=== PATIENT | female | born 1960 | race Caucasian/White ===

== ENCOUNTER 2022-10-09 08:26 | Day surgery (SDC) | payer OTHER, SELFPAY ==
[2022-10-09] MEDS: LACTATED RINGERS 1,000 ML 150 ML IV (08:39)
--- NOTE | 2022-10-09 08:49 | PM.PREOP ---
Pre-operative Note COVID-19 COVID-19 status: Not tested Interval Note History & Physical reviewed/Exam performed by Physician: Yes Changes to H&P: No ASA Class (for procedural sedation): II
[2022-10-09 08:50] VITALS: BP 136/89; PULSE 72; RESP 18; TEMP 36.1; O2SAT 100; BMI 25.8
--- NOTE | 2022-10-09 10:20 | PM.OP.COLON ---
Operative Date/Time/Diagnoses Date of procedure: 10/09/22 Time of procedure: 10:21 Pre-op diagnosis: Colon cancer screening Post-op diagnosis: same Procedure & Clinicians Study performed: Colonoscopy Same procedure as scheduled: Yes Surgeon: Luis Alatorre Procedure Notes Procedure in detail: Surgeon: Luis Alatorre MD Anesthesia: Sb Alexander CRNA Procedure: The patient was brought to the endoscopy suite, placed in left lateral decubitus position. The patient was connected to monitoring devices. A time-out was performed. Sedation was administered. Once the patient was adequately sedated, a digital rectal exam was performed and was normal. The scope was then inserted and advanced to the cecum where the appendiceal orifice was identified and photographed. The scope was then slowly withdrawn over greater than 6 minutes. The mucosa was thoroughly inspected. The mucosa looked completely normal throughout the colon. The scope was retroflexed in the rectum. No other abnormalities were seen. The scope was straightened and removed. The patient was awakened and brought to recovery. Scope withdrawal time: 6 minutes Sedation time: 18 minutes EBL: 0 Findings: Normal colon Post-procedure Recommendations: Colonoscopy in 10 years Disposition: PACU
[2022-10-09 10:22] VITALS: BP 99/69; PULSE 86; RESP 12; TEMP 36.1; O2SAT 97
[2022-10-09 10:26] VITALS: BP 116/74; PULSE 82; RESP 18; O2SAT 96
[2022-10-09 10:32] VITALS: BP 120/78; PULSE 77; RESP 12; O2SAT 97
[2022-10-09 10:37] VITALS: BP 123/82; PULSE 75; RESP 17; TEMP 36.1; O2SAT 98
== END 2022-10-09 11:23 | disposition home or self-care (01) ==
PROVIDERS: Referring Provider Surgery; Visit Provider Surgery
PROC: 0DJD8ZZ Inspection of Lower Intestinal Tract, Via Natural or Artificial Opening Endoscopic (ICD-10-PCS; CPT 45378; principal; 2022-10-09 09:45)
DX: Z12.11 Encounter for screening for malignant neoplasm of colon (principal)
CPT/HCPCS: 45378; J2704

== ENCOUNTER 2022-10-18 04:13 | Emergency (ER) | payer OTHER, SELFPAY ==
[2022-10-18 04:20] VITALS: BP 178/84; PULSE 75; RESP 18; TEMP 36.6; O2SAT 98; BMI 27.1
[2022-10-18 04:56] LABS: Add Manual Diff / Slide Review NO; Basophils Absolute Auto 0 /uL (0-100); Basophils Percent Auto 0.7 % (0-2); Eosinophils Absolute Auto 400 /uL (0-450); Eosinophils Percent Auto 8.6 % (2-4); Hematocrit 37.9 % (36-46); Hemoglobin 13.2 g/dL (12.0-16.0); Lymphocytes Absolute Auto 1500 /uL (1100-4500); Lymphocytes Percent Auto 31.1 % (25-40); Mean Corpuscular HGB Conc 34.8 % (30-36); Mean Corpuscular Hemoglobin 32.3 PG (26-34); Mean Corpuscular Volume 92.7 fL (80-100); Monocytes Absolute Auto 400 /uL (0-900); Monocytes Percent Auto 7.8 % (3-14); Neutrophils Absolute Auto 2500 /uL (1500-7000); Neutrophils Percent Auto 51.8 % (50-75); Platelet Count 221 X10^3/uL (150-400); Red Blood Cell Count 4.09 X10^6/uL (4.0-5.2); Red Cell Distribution Width 12.5 % (11.6-14.8); White Blood Cell Count 4.9 X10^3/uL (4.5-11.0)
--- NOTE | 2022-10-18 04:59 | ED_ITS ---
HPI - Back Pain/Injury General Chief Complaint: Back Pain/Injury Stated Complaint: Pos kidney stone Time Seen by Provider: 10/18/22 04:52 Source: patient History of Present Illness HPI Narrative: Patient 62-year-old female without significant past medical history presenting today with worsening right-sided flank pain. She reports that for the last 2 months he is had dull ache in her right flank. Over last couple days especially tonight increasing pain radiating into her groin. He is ever had kidney stones before. She is thrown up a couple of times. She feels like she has to get up and walk around whenever she has intense pain. She took some ibuprofen without significant relief. No fevers or chills. Related Data Home Medications Medication Instructions Recorded Confirmed ibuprofen 200 mg tablet (Advil) 400 mg PO Q8H 09/17/22 10/09/22 melatonin 3 mg tablet 3 mg PO BEDTIME 09/17/22 10/09/22 methocarbamol 750 mg tablet 750 mg PO Q6H PRN muscle spasms 09/17/22 10/09/22 Previous Rx's Medication Instructions Recorded hydrocodone 5 mg-acetaminophen 325 1 tab PO Q6H PRN pain #10 tabs 10/18/22 mg tablet ondansetron 4 mg disintegrating 4 mg PO Q8H PRN nausea and 10/18/22 tablet vomiting #10 tabs tamsulosin 0.4 mg capsule (Flomax) 0.4 mg PO BEDTIME #10 caps 10/18/22 Allergies Allergy/AdvReac Type Severity Reaction Status Date / Time Sulfa (Sulfonamide Allergy Unknown Verified 10/09/22 08:38 Antibiotics) Review of Systems Review of Systems ROS Unobtainable: All systems reviewed & are unremarkable except as noted in HPI and below Patient History Medical History Back pain Family history of colonic polyps GERD without esophagitis Lumbar disc herniation with radiculopathy Situational anxiety Social History household members: spouse Smoking Status: Never smoker alcohol intake: current Smoking Status: Never smoker alcohol intake frequency: 0-2 drinks per day Substance Use Type: does not use Exam Initial Vital Signs Initial Vital Signs: Vital Signs Temperature 97.9 F 10/18/22 04:20 Pulse Rate 75 10/18/22 04:20 Respiratory Rate 18 10/18/22 04:20 Blood Pressure 178/84 H 10/18/22 04:20 Pulse Oximetry 98 10/18/22 04:20 Oxygen Delivery Method Room Air 10/18/22 04:20 GENERAL: Alert 62-year-old female appears uncomfortable HEENT: Head atraumatic,EOMI, pupils reactive, face symmetric, moist mucous membranes CARDIOVASCULAR: Regular rate and rhythm without murmurs, rubs or gallops. RESPIRATORY: Breath sounds equal bilaterally, no wheezes rales or rhonchi. ABDOMEN: Soft, significant right lower quadrant tenderness negative Figueroa's sign no guarding no rebound no distention normal bowel sounds : Mild right CVA tenderness EXTREMITIES: Normal range of motion, no clubbing or edema. Neurovascularly intact NEUROLOGICAL: Alert and oriented x4 SKIN: Warm, dry, no laceration, no petechiae, no rashes or lesions. Course Orders Ordered: ED Orders 10/18/22 04:40 Complete Blood Count AUTO DIFF Stat Comprehensive Metabolic Panel Stat Lipase Stat 10/18/22 04:50 Urine Microscopic Stat 10/18/22 05:06 CT kidney ureter bladder (KUB) Stat Discontinued Medications Hydrocodone Bitart/Acetaminophen (Hydrocodone/Acet 5/325 Prepack) 1 bottle MISC SEEINSTR ONE Stop: 10/18/22 06:22 Last Admin: 10/18/22 06:32 Dose: 1 bottle Ketorolac Tromethamine (Ketorolac 30 Mg/Ml Vial) 15 mg IV NOW ONE Stop: 10/18/22 05:07 Last Admin: 10/18/22 05:14 Dose: 15 mg Documented By: HARIKA Morphine Sulfate (Morphine 2 Mg/Ml Inj) 2 mg IV NOW ONE Stop: 10/18/22 05:07 Last Admin: 10/18/22 05:41 Dose: 2 mg Documented By: MLTony Ondansetron HCl (Ondansetron 4 Mg/2 Ml Inj) 4 mg IV NOW ONE Stop: 10/18/22 05:07 Last Admin: 10/18/22 05:15 Dose: 4 mg Documented By: HARIKA Ondansetron HCl (Ondansetron 4 Mg Odt Prepack) 1 bottle MISC SEEINSTR ONE Stop: 10/18/22 06:22 Last Admin: 08/05/23 06:32 Dose: 1 bottle Vital Signs Vital signs: Vital Signs - 8 hr 10/18/22 04:20 10/18/22 06:33 Temperature 97.9 F Pulse Rate 75 100 H Respiratory Rate 18 14 Blood Pressure 178/84 H 152/72 H Pulse Oximetry 98 100 Oxygen Delivery Method Room Air Room Air MDM - Back Pain/Injury Lab Data 10/18/22 04:40 10/18/22 04:40 Labs: Lab Results 10/18/22 10/18/22 10/18/22 Range/Units 04:40 04:40 04:50 WBC 4.9 (4.5-11.0) X10^3/uL RBC 4.09 (4.0-5.2) X10^6/uL Hgb 13.2 (12.0-16.0) g/dL Hct 37.9 (36-46) % MCV 92.7 (80-100) fL MCH 32.3 (26-34) PG MCHC 34.8 (30-36) % RDW 12.5 (11.6-14.8) % Plt Count 221 (150-400) X10^3/uL Neut % (Auto) 51.8 (50-75) % Lymph % (Auto) 31.1 (25-40) % [place] % (Auto) 7.8 (3-14) % Eos % (Auto) 8.6 H (2-4) % Baso % (Auto) 0.7 (0-2) % Neut # (Auto) 2500 (5729-3943) /uL Lymph # (Auto) 1500 (1114-9677) /uL [place] # (Auto) 400 (0-900) /uL Eos # (Auto) 400 (0-450) /uL Baso # (Auto) 0 (0-100) /uL Sodium 138 (137-145) mmol/L Potassium 3.9 (3.4-5.1) mmol/L Chloride 103 (98-107) mmol/L Carbon Dioxide 28 (22-32) mmol/L BUN 13 (7-17) mg/dL Creatinine 0.73 (0.52-1.04) mg/dL Estimated GFR > 60 (>60) mL/min BUN/Creatinine Ratio 17.8 (6-22) Glucose 103 (80-110) mg/dL Calcium 9.0 (8.4-10.2) mg/dL Total Bilirubin 0.3 (0.2-1.3) mg/dL AST 24 (14-36) IU/L ALT 25 (<35) IU/L Alkaline Phosphatase 61 (38-126) U/L Total Protein 6.7 (6.3-8.2) g/dL Albumin 4.3 (3.5-5.0) g/dL Globulin 2.4 (1.7-4.1) g/dL Albumin/Globulin Ratio 1.8 (1.0-2.8) Lipase 180 (23-300) U/L Urine RBC 1-5/hpf (0-5/HPF) Urine WBC 1-5/hpf (0-5/HPF) Ur Squamous Epith Cells 5-10 /hpf H (0-5/HPF) Urine Bacteria Few (2-10) H (None) Hyaline Casts 0-1/lpf (None) Urine Mucus 2+ H (Negative) Ur Culture Indicated? Cult not indicated Urine Dip Bedside Urine Glucose Negative Bedside Urine Bilirubin - Negative Bedside Urine Ketone - Negative Urine Specific [place] 1.015 Bedside Urine Occult Blood ++ Bedside Urine pH 6 Bedside Urine Protein - Negative Bedside Urine Urobilinogen - Negative Bedside Urine Nitrite - Negative Bedside Urine Leukocytes - Negative Esterase Imaging Data CT scan - abdomen/pelvis: Radiologist's Impression: Preliminary report moderate right-sided hydronephrosis with the mm right distal ureteral calculus. Additional nonobstructing right renal calculi are present. MDM Narrative Medical decision making narrative: 59-year-old female presents today with right-sided flank pain. Reports that she is had dull ache for last couple of months symptoms radiating to her groin high suspicion for nephrolithiasis which is confirmed by CT. She has hematuria but no evidence of infection. There is no JAMES on labs. She is given Toradol Zofran and morphine in the ED which has helped. At this time can follow-up of urology for probable ureteral stent. Discharge Plan Departure Patient Disposition: Home Clinical Impression: Kidney stone on right side Instructions: DI for Kidney Stones Activity Restrictions/Additional Instructions: * You've been diagnosed with kidney stone * What to do: Increase fluid intake, Strain urine, try to catch stone * Please follow-up with your primary care provider in the next 2-3 days, you may require urology consultation please discuss this with Please call urology tomorrow to schedule follow-up appointment -If you should have fever, or pain is uncontrolled with medication at home or any other concerning symptoms return to ER for further evaluation MEDICATIONS--> [facility] Take Motrin 600 mg every 8 hours as needed for pain Take [place] every 6 hours if needed for severe pain Take Zofran every 4-6 hours if needed for nausea Flomax 0.4 mg nightly to help with passage of stone CONTROLLED SUBSTANCE DISCHARGE (Narcotoic/benzodiazepine) 1. You have been prescribed narcotic medications, it does have acetaminophen/Tylenol/paracetamol in it so do not take extra Tylenol or Tylenol containing products 2. Please understand that we cannot provide further refills of narcotics, benzodiazepines or controlled substances through the ED and her pain management will need to be through your provider. 3. While on these medications you cannot drive or operate heavy machinery. 4. You cannot sign legal documents or perform any duties such as this. 5. As long as you're taking opiate pain medications he should also be taking a stool softener such as Colace, Dulcolax, MiraLAX or prune juice, to help avoid constipation. Prescriptions: New hydrocodone-acetaminophen 5-325 mg tablet 1 tab PO Q6H PRN (Reason: pain) Qty: 10 0RF tamsulosin [Flomax] 0.4 mg capsule 0.4 mg PO BEDTIME Qty: 10 0RF ondansetron 4 mg tablet,disintegrating 4 mg PO Q8H PRN (Reason: nausea and vomiting) Qty: 10 0RF No Action methocarbamol 750 mg tablet 750 mg PO Q6H PRN (Reason: muscle spasms ) ibuprofen [Advil] 200 mg tablet 400 mg PO Q8H melatonin 3 mg tablet 3 mg PO BEDTIME Referrals: Quan Marti MD [Physician] - Stand Alone Forms: Patient Portal/API
[2022-10-18 05:00] LABS: Alanine Aminotransferase 25 IU/L (<35); Albumin 4.3 g/dL (3.5-5.0); Albumin Globulin Ratio 1.8 (1.0-2.8); Alkaline Phosphatase 61 U/L (38-126); Aspartate Aminotransferase 24 IU/L (14-36); BUN Creatinine Ratio 17.8 (6-22); Bilirubin Total 0.3 mg/dL (0.2-1.3); Blood Urea Nitrogen 13 mg/dL (7-17); Carbon Dioxide 28 mmol/L (22-32); Chloride 103 mmol/L (98-107); Estimated Glomerular Filt Rate > 60 mL/min (>60); Globulin 2.4 g/dL (1.7-4.1); Glucose 103 mg/dL (80-110); HEMOLYSIS < 15 (0-50); Lipase 180 U/L (23-300); Potassium 3.9 mmol/L (3.4-5.1); Sodium 138 mmol/L (137-145); Total Protein 6.7 g/dL (6.3-8.2)
--- NOTE | 2022-10-18 05:06 | DI.CT.S_ITS ---
PROCEDURE: CT KIDNEY URETER BLADDER (KUB) INDICATIONS: Right flank pain. TECHNIQUE: Axial sections were acquired from the lung bases to the pubic symphysis. Coronal and sagittal reformats were performed. For radiation dose reduction, the following was used: automated exposure control, adjustment of mA and/or kV according to patient size. COMPARISON: None. FINDINGS: Image quality: Excellent. Lung bases: Unremarkable. Heart: No significant findings. URINARY: Right Kidney: Nonobstructing right renal calculi. There is moderate right hydroureteronephrosis. Right Ureter: 8 millimeter calculus within the distal right ureter. Left Kidney: No stones or hydronephrosis. Left Ureter: No hydroureter. Bladder: Normal wall thickness. No stones. ABDOMEN: Liver: Cyst of the left hepatic lobe. Mild hepatic steatosis. Gallbladder: Unremarkable. Biliary ducts: Unremarkable. Pancreas: Unremarkable. Spleen: Unremarkable. Adrenal Glands: Unremarkable. Stomach and Bowel: Stomach, small bowel loops, and colon are unremarkable. Peritoneum: No abnormal intraperitoneal fluid. No free air. Ventral Wall: No hernia. Abdominal Nodes: No enlarged retroperitoneal or mesenteric lymph nodes. Vessels: Aorta and inferior vena cava are normal in size. PELVIS: Pelvic Organs: Unremarkable. Pelvic Nodes: Unremarkable. Miscellaneous: No inguinal hernias are seen. Bones: Unremarkable. IMPRESSION: Moderate right hydroureteronephrosis with an 8 millimeter distal right ureteral calculus. Additional nonobstructing right renal calculi are present. Comment: Final report is concordant with preliminary interpretation by [facility] Dictated by: Blaine Hutton M.D. on 10/18/2022 at 6:58 Approved by: Blaine Hutton M.D. on 10/18/2022 at 7:00
[2022-10-18 05:08] LABS: Bacteria Urine Few (2-10); Mucus Urine 2+ (Negative); RBC Urine 1-5/HPF (0-5/HPF); Squamous Epithelial Cell Urine 5-10 /HPF (0-5/HPF); WBC Urine 1-5/HPF (0-5/HPF)
[2022-10-18 05:09] LABS: Culture Indicated Urine Cult Not Indicated; Hyaline Casts Urine 0-1/LPF
[2022-10-18] MEDS: KETOROLAC 30 MG/ML VIAL 15 MG IV (05:14)
[2022-10-18] MEDS: ONDANSETRON 4 MG/2 ML INJ IV (05:15)
[2022-10-18] MEDS: MORPHINE 2 MG/ML INJ IV (05:41)
[2022-10-18] MEDS: HYDROCODONE/ACET 5/325 PREPACK 1 BOTTLE MISC (06:32)
[2022-10-18] MEDS: ONDANSETRON 4 MG ODT PREPACK 1 BOTTLE MISC (06:32)
[2022-10-18 06:33] VITALS: BP 152/72; PULSE 100; RESP 14; O2SAT 100
== END 2022-10-18 06:43 | disposition home or self-care (01) ==
PROVIDERS: Emergency Provider Emergency Medicine
DX: N20.0 Calculus of kidney (principal)
CPT/HCPCS: 36415; 74176; 80053; 81003; 81015; 83690; 85025; 96374; 96375; 99284; J1885; J2270; J2405